=== PATIENT | female | born 1955 | race Hispanic/Latino ===

== ENCOUNTER 2018-02-22 07:45 | Day surgery (SDC) | payer BC ==
[2018-02-21 12:43] VITALS: BMI 41.0
[2018-02-22] MEDS ORDERED: Propofol 10 mg/ml Inj (20 ML) ONE ×2 (10:45→11:06)
[2018-02-22 11:52] VITALS: TEMP 98.2
[2018-02-22 13:19] VITALS: BP 114/52; PULSE 65; RESP 20; O2SAT 97
== END 2018-02-22 12:35 | disposition home or self-care (01) ==
LOC: C.ENDO 07:45
PROVIDERS: ATTEND Internal Medicine Gastroenterology
DX: Z12.11 Encounter for screening for malignant neoplasm of colon (principal); K29.50 Unspecified chronic gastritis without bleeding; K29.80 Duodenitis without bleeding; D12.3 Benign neoplasm of transverse colon; D12.8 Benign neoplasm of rectum; K57.30 Diverticulosis of large intestine without perforation or abscess without bleeding; K64.1 Second degree hemorrhoids
CPT/HCPCS: 43239; 45380; 45385; 88305; J2001; J2704